=== PATIENT | female | born 1995 | race Caucasian/White ===

== ENCOUNTER 2022-02-04 08:37 | Emergency (ER) | payer BC, MEDICAID, OTHER ==
[~2022-02-04] VITALS: Ht 157.5 cm; Wt 40.8 kg
[2022-02-04 08:48] VITALS: BP_SYST 124
--- NOTE | 2022-02-04 09:00 | NUR ---
Patient to ER bed H2 to gown for evaluation. Side rails up. Report given to RYAN YOUNG.
[2022-02-04] MEDS ORDERED: KETOROLAC TROMETHAMINE 60 MG/2 ML VIAL IM ONE (09:15)
[2022-02-04 09:27] LABS: BASOPHILS % (AUTO) 0.5 % (0.0-2.0); EOSINOPHILS % (AUTO) 0.4 % (0.0-4.0); HEMOGLOBIN 14.3 g/dL (12.0-16.0); LYMPHOCYTES % (AUTO) 13.9 % (20.5-51.5); MEAN CORPUSCULAR HEMOGLOBIN 30 pg (27-31); MEAN CORPUSCULAR HGB CONC 35 % (32-36); MEAN CORPUSCULAR VOLUME 85 fL (79.0-98.0); MONOCYTES # (AUTO) 0.4 K/uL (0.0-1.0); MONOCYTES % (AUTO) 5.9 % (1.7-9.3); NEUTROPHILS # (AUTO) 5.7 K/uL (1.8-7.7); NEUTROPHILS % (AUTO) 79.3 % (40.0-70.0); PLATELET COUNT (AUTO) 221 K/uL (130-430); RED CELL DISTRIBUTION WIDTH 13.1 % (9.0-15.0); WHITE BLOOD COUNT (AUTO) 7.2 K/uL (4.8-10.8)
--- NOTE | 2022-02-04 09:30 | NUR ---
ER at bedside examining patient.
--- NOTE | 2022-02-04 09:35 | NUR ---
PT bib self to the ER from home. CC pelvic pain, diarrhea and nausea.denies cough, pt is 100.1 denies SOB, skin intact aaox3, no past medical hx.
[2022-02-04 09:41] LABS: CALCIUM 8.8 mg/dL (8.4-11.0); CREATININE 0.6 mg/dL (0.55-1.30)
[2022-02-04] MEDS ORDERED: TRAM50TA2 PO (10:38)
[2022-02-04] MEDS ORDERED: NITR-85 PO (10:38)
[2022-02-04] MEDS ORDERED: ONDA-8 TL (10:38)
--- NOTE | 2022-02-04 11:24 | NUR ---
Patient given written and verbal discharge instructions and verbalizes understanding. ER MD discussed with patient the results and treatment provided. Patient in stable condition. ID arm band removed. Patient educated on pain management and to follow up with PMD. Pain Scale . Opportunity for questions provided and answered. Medication side effect fact sheet provided.
[2022-02-04 11:43] VITALS: BP_SYST 118
== END 2022-02-04 11:43 | disposition home or self-care (01) ==
LOC: SED 08:37
DX: N39.0 Urinary tract infection, site not specified (principal); R10.2 Pelvic and perineal pain; R19.7 Diarrhea, unspecified; R11.0 Nausea; Z79.899 Other long term (current) drug therapy
CPT/HCPCS: 99284; 80048; 85025; 36415; 74018; 81002; 81025; 96372; J1885